=== PATIENT | male | born 1950 | race Caucasian/White ===

== ENCOUNTER 2019-06-25 12:10 | Outpatient (RCR) | payer MEDICAID, SELFPAY | END 2019-06-25 23:59 | disposition home or self-care (01) | LOC: ANHAUDIO 12:10 | DX: Z46.1 Encounter for fitting and adjustment of hearing aid (principal) | CPT/HCPCS: 99199 ==

== ENCOUNTER 2020-01-31 10:51 | Outpatient (RCR) | payer MEDICARE, MEDICAID, SELFPAY | END 2020-01-31 23:59 | disposition home or self-care (01) | LOC: ANHAUDIO 10:51 | DX: Z46.1 Encounter for fitting and adjustment of hearing aid (principal) | CPT/HCPCS: 99199 ==

== ENCOUNTER 2023-11-11 13:34 | Outpatient (RCR) | payer OTHER, SELFPAY | END 2023-11-11 23:59 | disposition home or self-care (01) | LOC: ANHAUDIO 13:34 | DX: Z46.1 Encounter for fitting and adjustment of hearing aid (principal) | CPT/HCPCS: 99199 ==

== ENCOUNTER 2023-12-11 09:56 | Outpatient (RCR) | payer OTHER, SELFPAY | END 2023-12-11 23:59 | disposition home or self-care (01) | LOC: ANHAUDIO 09:56 | DX: Z46.1 Encounter for fitting and adjustment of hearing aid (principal) | CPT/HCPCS: 99199 ==